=== PATIENT | female | born 1985 | race African-American/Black ===

== ENCOUNTER 2017-01-03 19:46 | Emergency (ER) | payer OTHER ==
[2017-01-03] MEDS ORDERED: traMADol 50 MG TAB PO STA (20:25)
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
--- NOTE | 2017-01-03 21:51 | USB ---
EXAMINATION TYPE: US breast complete RT DATE OF EXAM: 01/03/2017 COMPARISON: NONE CLINICAL HISTORY: Palpable lump felt by patient in right breast 11 oclock. Redness. Multiple tiny cystic areas area visualized throughout the right breast. No evidence for solid mass or abscess. IMPRESSION: BI-RADS 2 benign Recommendation: Biopsy should not be delayed in the setting of a clinically suspicious abnormality. Appropriate position follow up. Mammography per ACS guidelines.
[2017-01-03 22:07] VITALS: BP 113/69; PULSE 76; RESP 16; TEMP 98
[2017-01-03] MEDS ORDERED: traMADol 50 MG STARTER PACK 3 TAB BTL PO STA (22:16)
== END 2017-01-03 22:19 | disposition home or self-care (01) ==
LOC: EC 19:46
DX: N63 Unspecified lump in breast (principal); N64.4 Mastodynia; B36.8 Other specified superficial mycoses; F17.200 Nicotine dependence, unspecified, uncomplicated
CPT/HCPCS: 99283